=== PATIENT | female | born 2000 | race Caucasian/White ===

== ENCOUNTER 2020-08-11 22:20 | Emergency (ER) | payer BC, OTHER ==
[2020-08-11] MEDS ORDERED: Ketorolac 60 MG/2 ML SDV IM ONE (22:50)
--- NOTE | 2020-08-11 23:35 | EDM.PDOC ---
ED HPI GENERAL MEDICAL PROBLEM - General Chief Complaint: General Stated Complaint: RIB PAIN Time Seen by Provider: 08/11/20 22:55 Source of Information: Reports: Patient, Family History Limitations: Reports: No Limitations - History of Present Illness INITIAL COMMENTS - FREE TEXT/NARRATIVE: 19-year-old female here on vacation, has a recurring right-sided chest wall pain that is been bothering her for a couple of months. 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 Today it is really bothering her, so she wanted it checked. It is very localized to the right lateral chest, feels somewhat better when putting pressure on it. Hurts to breathe or cough. No fevers or chills, no shortness of breath, no abdominal pain, no trauma. Onset: Gradual Duration: Week(s): (Spin going on for 8 weeks) Location: Reports: Chest (Right lateral chest wall) Quality: Reports: Sharp Associated Symptoms: Reports: No Other Symptoms Right Upper Abdomen Pain Score (Numeric/FACES): 7 - Related Data Allergies Allergy/AdvReac Type Severity Reaction Status Date / Time amoxicillin Allergy Nausea and Verified 08/11/20 22:42 Vomiting Home Meds: Home Meds Norethindrone 1 tab PO DAILY 08/11/20 [History] Past Medical History HEENT History: Reports: Impaired Vision HEMATOLOGY SPECIALIST History: Reports: Social & Family History - Tobacco Use Tobacco Use Status *Q: Current Every Day Tobacco User Years of Tobacco use: 2 Packs/Tins Daily: 0.1 - Caffeine Use Caffeine Use: Reports: Soda - Recreational Drug Use Recreational Drug Use: No ED ROS GENERAL - Review of Systems Review Of Systems: See Below Constitutional: Denies: Fever, Chills HEENT: Reports: No Symptoms Respiratory: Reports: Pleuritic Chest Pain Cardiovascular: Reports: Chest Pain GI/Abdominal: Reports: No Symptoms Musculoskeletal: Reports: No Symptoms Skin: Reports: No Symptoms Neurological: Reports: No Symptoms Psychiatric: Reports: No Symptoms ED EXAM, GENERAL - Physical Exam Exam: See Below Exam Limited By: No Limitations General Appearance: Alert, No Apparent Distress Head: Atraumatic Respiratory/Chest: No Respiratory Distress, Lungs Clear, Other (Patient has very localized chest tenderness on the right lateral chest) Cardiovascular: Regular Rate, Rhythm. No: Tachycardia GI/Abdominal: Soft, Non-Tender Neurological: Alert, Oriented Psychiatric: Normal Affect, Normal Mood Skin Exam: Warm, Dry, Other (No rash or bruising is present over the painful area.) Course - Vital Signs Last Recorded V/S: Last Vital Signs Temp 97.7 F 08/11/20 22:42 Pulse 99 08/11/20 22:42 Resp 16 08/11/20 22:42 BP 129/78 08/11/20 22:42 Pulse Ox 95 08/11/20 22:42 - Orders/Labs/Meds Orders: Active Orders 24 hr Category Date Time Status Chest 2V [CR] Routine Exams 08/11/20 22:56 Taken Meds: Medications Discontinued Medications Generic Name Dose Route Start Last Admin Trade Name Freq PRN Reason Stop Dose Admin Ketorolac Tromethamine 60 mg 08/11/20 22:50 08/11/20 22:55 Ketorolac 60 Mg/2 Ml Sdv IM 08/11/20 22:51 60 mg ONETIME ONE Administration - Re-Assessments/Exams Free Text/Narrative Re-Assessment/Exam: 08/11/20 23:32 60 mg of IM Toradol was given and the patient was sent back for chest x-ray. This was normal and she did have some improvement in her pain. 08/11/20 23:33 2 view chest x-ray is normal, patient will be discharged and encouraged to take ibuprofen chewable 800 mg 3 times a day as she cannot swallow pills. A copy of her x-ray was given to her and she can follow-up when home if not improving. Departure - Departure Time of Disposition: 23:41 Disposition: Home, Self-Care 01 Clinical Impression: Chest wall pain - Discharge Information Instructions: Chest Wall Pain, [id number] Referrals: NICHOLAS CLINE MD [Other] Forms: ED Department Discharge Care Plan Goals: Take 800 mg of ibuprofen 3 times a day and recheck in 2 to 3 days when you are home if not improving. You may need some local physical therapy or more evaluation such as a CT scan or MRI if not improving. Sepsis Event Note (ED) - Evaluation Sepsis Screening Result: No Definite Risk - Focused Exam Vital Signs: Vital Signs Temp Pulse Resp BP Pulse Ox 08/11/20 22:42 97.7 F 99 16 129/78 95 08/11/20 22:40 97.7 F 99 16 129/78 95 - My Orders Last 24 Hours: My Active Orders 08/11/20 22:56 Chest 2V [CR] Routine - Assessment/Plan Last 24 Hours: My Active Orders 08/11/20 22:56 Chest 2V [CR] Routine
--- NOTE | 2020-08-13 10:35 | CR ---
CHEST: 2 view CLINICAL HISTORY:Dyspnea COMPARISON:None FINDINGS: The heart size, pulmonary vascularity and hilar structures are normal. No infiltrate effusion or pneumothorax is seen. IMPRESSION: No acute cardiopulmonary process.
== END 2020-08-11 23:46 | disposition home or self-care (01) ==
LOC: JP.ED 22:20
DX: R07.89 Other chest pain (principal); Z88.0 Allergy status to penicillin; Z72.0 Tobacco use
CPT/HCPCS: 71046; 96372; 99283; J1885